=== PATIENT | female | born 1965 | race Caucasian/White ===

== ENCOUNTER → 2020-07-16 | Outpatient (CLI) | payer OTHER | LOC: EXRD 11:33 | DX: M79.641 Pain in right hand (principal); M79.642 Pain in left hand; G89.29 Other chronic pain; R76.8 Other specified abnormal immunological findings in serum | CPT/HCPCS: 73130 ==

== ENCOUNTER → 2021-12-23 | Outpatient (CLI) | payer OTHER ==
[~2021-12-23] MED LIST: CALCIUM CARBON500 MG PO; COLACE 100MG C100 MG PO; CULTURELLE PRO1 EACH PO; CYMBALTA60 MG PO; DICLOFENAC GEL 1% TOP; ESTRACE42.5 GM TOP; FLONASE SPRAY; HYDROCODON-ACE1 EAC6 PO; ISOSORBIDE MONO30 MG PO; KLONOPIN1 MG PO; LEVOTHYROXINE25 MCG PO; LIDOCAINE PATCH 5% TOP; LIPITOR20 MG PO; LORATADINE10 MG PO; LOW DOSE ASPIRI81 MG PO; MIRALAX 119 GR119 GM PO; NEURONTIN800 MG PO; NITROGLYCERIN0.4 MG SL; NORVASC5 MG PO; PLAQUENIL200 MG PO; PROAIR HFA8.5 GM INH; PROTONIX40 MG PO; ROBAXIN 750 MG750 MG PO; ROPINIROLE HCL4 MG PO; ROXICODONE15 MG PO; TRICOR48 MG PO; VITAMIN B12 PO; VITAMIN D325 MCG PO; VRAYLAR6 MG PO
[2021-12-23 14:02] LABS: BUN/CREATININE RATIO 8 (0-10)
== END ==
LOC: OPSV2 12:30
PROVIDERS: Orthopaedic Surgery
DX: Z01.818 Encounter for other preprocedural examination (principal); M75.02 Adhesive capsulitis of left shoulder
CPT/HCPCS: 71046; 80048; 93005

== ENCOUNTER → 2021-12-26 | Day surgery (SDC) | payer OTHER ==
[~2021-12-26] VITALS: Ht 165.1 cm; Wt 58.1 kg
== END | disposition home or self-care (01) ==
LOC: OR 05:32
DX: M75.02 Adhesive capsulitis of left shoulder (principal); I10 Essential (primary) hypertension; K21.9 Gastro-esophageal reflux disease without esophagitis; E78.5 Hyperlipidemia, unspecified; F17.210 Nicotine dependence, cigarettes, uncomplicated; Z79.82 Long term (current) use of aspirin
CPT/HCPCS: 73020; 76000; J1100; J1170; J1885; J2001; J2250; J2405; J2704; J3010; J3301